=== PATIENT | male | born 2000 | race Caucasian/White ===

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

== ENCOUNTER 2021-12-13 09:36 | Inpatient (IN) | payer BC, OTHER ==
[~2021-12-13] VITALS: Ht 180.3 cm; Wt 57.1 kg
[~2021-12-13 09:36] MED LIST changes: +LAMO25 PO; +PROZAC20 MG PO; +QUET25 PO
[2021-12-13 10:01] LABS: BASOPHILS ABSOLUTE AUTO 0.04 K/mm3 (0.00-0.23); BASOPHILS PERCENT AUTO 0 % (0-2); EOSINOPHILS ABSOLUTE AUTO 0.03 K/mm3 (0.00-0.68); EOSINOPHILS PERCENT AUTO 0 % (0-6); Hemoglobin 13.9 g/dL (13.5-17.5); IMMATURE GRAN ABSOLUTE AUTO 0.08 K/mm3 (0.00-0.10); IMMATURE GRAN PERCENT AUTO 1 % (0-1); LYMPHOCYTES ABSOLUTE AUTO 1.89 K/mm3 (0.84-5.20); LYMPHOCYTES PERCENT AUTO 13 % (21-46); MONOCYTES ABSOLUTE AUTO 0.98 K/mm3 (0.16-1.47); MONOCYTES PERCENT AUTO 7 % (4-13); Mean Corpuscular HGB 29.7 pg (26.0-34.0); Mean Corpuscular HGB Conc 33.9 g/dL (31.5-36.5); Mean Corpuscular Volume 88 fL (80-100); Mean Platelet Volume 9.1 fL (9.1-12.4); NEUTROPHILS PERCENT AUTO 80 % (41-73); Platelet Count 369 K/mm3 (150-400); RDW Coefficient Variation 12.7 % (11.7-14.2); RDW Standard Deviation 40.8 fL (35.1-46.3); Red Blood Cell Count 4.68 M/mm3 (4.30-5.90); White Blood Cell Count 15.12 K/mm3 (4.00-11.30)
[2021-12-13 10:16] LABS: Source, Urine Foley catheter
[2021-12-13 10:17] LABS: PCO2 Arterial 43.8 mmHg (35-45); PO2 Arterial 177 mmHg (80-100); pH Blood Arterial 7.36 (7.35-7.45)
[2021-12-13 10:18] LABS: Alanine Aminotransfer (ALT/SGP 21 U/L (12-78); Albumin, Blood 3.8 g/dL (3.4-5.0); Albumin/Globulin Ratio 0.9 (0.8-1.8); Alk Phos 43 U/L (50-136); Anion Gap 9 mmol/L (6-16); Aspartate Aminotrans (AST/SGOT 23 U/L (12-37); Bilirubin, Total 0.3 mg/dL (0.1-1.0); Blood Urea Nitrogen 15 mg/dL (8-24); Bun/Creatinine Ratio 20.9 (12.0-20.0); CO2, Blood 23 mmol/L (21-32); Calcium, Blood 8.8 mg/dL (8.5-10.1); Chloride, Blood 104 mmol/L (98-108); Creatinine, Blood 0.72 mg/dL (0.60-1.20); Free Thyroxine 1.71 ng/dL (0.70-1.60); Globulin, Blood 4.2 g/dL (2.2-4.0); Glomerular Filtration Rate >60 (60-); Glucose, Blood 136 mg/dL (70-99); Potassium, Blood 3.6 mmol/L (3.5-5.5); Salicylate 1.8 mg/dL (2.8-20.0); Sodium, Blood 136 mmol/L (136-145)
[2021-12-13 10:21] LABS: Ethanol (Alcohol), Blood, Med 16 mg/dL
[2021-12-13 10:23] LABS: Acetaminophen, Random <2.0 ug/mL (10.0-30.0)
[2021-12-13 11:00] LABS: Bilirubin, Urine Neg (Neg); Blood, Urine 1+ (Neg); Glucose Qualitative, Urine Neg (Neg); Ketones, Urine Neg (Neg); Leukocyte Esterase, Urine 1+ (Neg); Nitrite, Urine Neg (Neg); Protein, Urine 2+ (Neg); Specific Gravity, Urine 1.025 (1.003-1.022); Urobilinogen, Urine 1+ (Normal)
[2021-12-13 11:19] LABS: U Benzodiazapine Screen DETECTED; U Cannabinoids Screen DETECTED
[2021-12-13 11:20] LABS: U Amphetamine Screen Not Detected; U Barbituate Screen Not Detected; U Buprenorphine Screen Not Detected; U Cocaine Screen Not Detected; U Methadone Screen Not Detected; U Methamphetamine Screen Not Detected; U Opiates Screen Not Detected; U Oxycodone Screen Not Detected; U Phencyclidine Screen Not Detected; U Propoxyphene Screen Not Detected
[2021-12-13 11:30] LABS: Appearance, Urine Cloudy (Clear); Bacteria Many /hpf; Color, Urine Pale Yellow (P-Yellow); Squamous Epithelial Cells Few /hpf (Few)
[2021-12-13 11:31] LABS: Amorphous Light (0-Heavy); Granular Casts 0-2 /lpf (0); Hyaline Casts 0-2 /lpf (0-2); Mucus Heavy (0-Heavy)
[2021-12-13 12:25] LABS: Influenza A, PCR NEGATIVE (NEGATIVE); Influenza B, PCR NEGATIVE (NEGATIVE); Resp Syncytial Virus, PCR NEGATIVE (NEGATIVE); SARS-Cov-2 (COVID-19) PCR, MMC NEGATIVE (NEGATIVE)
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
--- NOTE | 2021-12-13 16:00 | NUR ---
PATIENT AFEBRILE. NO SIGNS OF PAIN NOTED. HR 80S TO LOW 100S. SBP LOW 100S TO 120S. PATIENT ON PROPOFOL AND PRECEDEX FOR SEDATION. NO OTHER ACUTE CHANGES TO NOTE ON AT THIS TIME. WILL CONTINUE TO MONITOR.
--- NOTE | 2021-12-13 18:39 | NUR ---
SHIFT SUMMARY PATIENT REMAINS INTUBATED AND SEDATED. PATIENT REMAINS RESPONDING TO NOXIOUS STIMULI AND NURSING CARE. PATIENT CONTINUES TO MOVE ALL EXTREMITIES WHEN STIMULATED. PATIENT HAS REMAINED AFEBRILE. PATIENT HAS HAD NO SIGNS OF PAIN. PATIENT REMAINS ON AC 16, TV 450, PEEP 5 AND 30% FIO2. PATIENT REMAINS SR TO ST, HR 80S TO LOW 100S. SBP 90S TO 120S. OG REMAINS TO LIS. NO BM THIS SHIFT. PATIENT REMAINS NPO. TEMP SCANLON DRAINED 350 MLS OF CLOUDY, TEA COLORED URINE THIS SHIFT. NO CHANGES TO SKIN NOTED. PATIENT REPOSITIONED Q2H. PROPOFOL AT 20 MCG/ KG/ MINUTE, PRECEDEX AT 0.4 MCG/ KG/ HOUR, AND LR AT 150 MLS/ HOUR. PATIENT RECIEVED 40 MEQ KCL AND 2 G MAG THIS SHIFT. PATIENT ALSO RECEIVED 1 L NS IN ER AND 1 L LR IN ICU. POISON CONTROL STATED THAT SINCE QTC IMPROVING THAT MAG AND POTASSIUM LABS DO NOT NEED TO BE CONTINUED TO BE DRAWN OVERNIGHT. MOTHER UPDATED AND STATED THAT SHE WOULD LIKE TO BE CALLED PRIOR TO EXTUBATION BECAUSE PATIENT MIGHT BE COMBATIVE. BED LOW, CALL LIGHT IN REACH. PATIENT APPEARS COMFORTABLE AT THIS TIME. REPORT WILL BE GIVEN TO [facility] MATE NURSE SHORTLY.
--- NOTE | 2021-12-13 22:54 | NUR ---
ASSUMED CARE OF PT AT 1900. REPORT RECEIVED FROM AVANI YUEN. PT APPEARS COMFORTABLY SEDATED UNLESS DISTURBED, THEN HAS FORCEFUL COUGH AND REACHES FOR THE ETT. POC TO KEEP INTUBATED AND SEDATED OVERNIGHT AND POSS EXTUBATE TOMORROW.
--- NOTE | 2021-12-14 00:02 | NUR ---
PT BECOMES VERY AGITATED, REACHING FOR TUBE AND COUGHING FORCEFULLY WITH ATTEMPT AT ORAL CARE. STAFF CALLED TO BEDSIDE FOR ASSISTANCE AND PT IS REASSURED AND GIVEN PRN MEDS FOR SEDATION.
[2021-12-14 03:05] LABS: BASOPHILS ABSOLUTE AUTO 0.06 K/mm3 (0.00-0.23); BASOPHILS PERCENT AUTO 0 % (0-2); EOSINOPHILS ABSOLUTE AUTO 0.06 K/mm3 (0.00-0.68); EOSINOPHILS PERCENT AUTO 0 % (0-6); Hematocrit 36.1 % (37.0-53.0); Hemoglobin 12.1 g/dL (13.5-17.5); IMMATURE GRAN PERCENT AUTO 1 % (0-1); LYMPHOCYTES ABSOLUTE AUTO 1.62 K/mm3 (0.84-5.20); LYMPHOCYTES PERCENT AUTO 8 % (21-46); MONOCYTES ABSOLUTE AUTO 0.96 K/mm3 (0.16-1.47); MONOCYTES PERCENT AUTO 5 % (4-13); Mean Corpuscular HGB 29.8 pg (26.0-34.0); Mean Corpuscular HGB Conc 33.5 g/dL (31.5-36.5); Mean Corpuscular Volume 89 fL (80-100); NEUTROPHILS ABSOLUTE AUTO 17.37 K/mm3 (1.96-9.15); NEUTROPHILS PERCENT AUTO 86 % (41-73); Platelet Count 293 K/mm3 (150-400); RDW Coefficient Variation 13.2 % (11.7-14.2); RDW Standard Deviation 42.8 fL (35.1-46.3); Red Blood Cell Count 4.06 M/mm3 (4.30-5.90); White Blood Cell Count 20.17 K/mm3 (4.00-11.30)
[2021-12-14 03:23] LABS: Alanine Aminotransfer (ALT/SGP 15 U/L (12-78); Albumin, Blood 2.9 g/dL (3.4-5.0); Albumin/Globulin Ratio 0.9 (0.8-1.8); Alk Phos 38 U/L (50-136); Anion Gap 5 mmol/L (6-16); Aspartate Aminotrans (AST/SGOT 27 U/L (12-37); Bilirubin, Total 0.6 mg/dL (0.1-1.0); Blood Urea Nitrogen 10 mg/dL (8-24); Bun/Creatinine Ratio 14.6 (12.0-20.0); CO2, Blood 26 mmol/L (21-32); Calcium, Blood 8.8 mg/dL (8.5-10.1); Chloride, Blood 109 mmol/L (98-108); Creatinine, Blood 0.69 mg/dL (0.60-1.20); Globulin, Blood 3.4 g/dL (2.2-4.0); Glomerular Filtration Rate >60 (60-); Glucose, Blood 88 mg/dL (70-99); Magnesium, Blood 2.1 mg/dL (1.6-2.4); Potassium, Blood 4.1 mmol/L (3.5-5.5); Sodium, Blood 140 mmol/L (136-145); Total Protein, Blood 6.3 g/dL (6.4-8.2)
--- NOTE | 2021-12-14 06:12 | NUR ---
NO SIGNIFICANT CHANGES IN PT STATUS OVERNIGHT. HE IS EASILY AGITATED WITH ANY CARE, GENTLE ORAL CARE AND REPOSITIONING DONE. SEDATION WITH PROPOFOL AND PRECEDEX. VSS. HE IS AFEBRILE. WILL CONTINUE TO MONITOR AND REPORT TO ONCOMING SHIFT.
--- NOTE | 2021-12-14 08:00 | NUR ---
INITIAL ASSESSMENT PATIENT INTUBATED AND SEDATED. PATIENT RESPONDS TO NURSING CARE/ STIMULATION WITH AGGITATION, SITTING FORWARD AND ATTEMPTING TO GRAB ETT. PATIENT STRONG AND ABLE TO MOVE ALL EXTREMITIES. PATIENT AFEBRILE. NO SIGNS OF PAIN NOTED. LUNGS CLEAR. PATIENT ON AC 16, TV 450, PEEP 5 AND 30% FIO2. MODERATE AMOUNT OF THICK, YELLOW SPUTUM BEING SUCTIONED FROM ETT. PATIENT IN SR, HR IN THE 60S. SBP IN THE 90S. OG TO LIS. PATIENT NPO. DATE OF LAST BM UNKNOWN. SCANLON DRAINING CLOUDY, TEA COLORED URINE. BRUISE TO R KNEE. PETECHIAE TO BILAT NECK (MOTHER STATES HICKIES), AND STERI STRIPS TO SMALL LACERATION TO BRIDGE OF NOSE. PATIENT MOVING OWN HIPS FREQUENTLY IN BED. PROPOFOL INFUSING AT 30 MCG/ KG/ MINUTE, PRECEDEX AT 0.2 MCG/ KG/ HOUR, LR AT 150 MLS/ HOUR. DR. MANN UPDATED ON PATIENT. INFORMED THAT WBCS INCREASING AND THAT NO URINE CULTURE DONE ON URINE OBTAINED YESTERDAY. STATED HE WOULD PLACE ORDERS. WILL CONTINUE TO MONITOR PATIENT FREQUENTLY THROUGHOUT SHIFT.
--- NOTE | 2021-12-14 10:50 | NUR ---
DR. LUNA CALLED AND INFORMED THAT PATIENT EXTUBATED AT 1014 AND THAT HE IS STARTING TO ESCALATE. DR. LUNA STATED THAT HE WOULD COME SEE HIM TODAY BUT UNSURE ON TIME. PATIENT INFORMED AFTER EXTUBATION THAT HE WAS FOUND WITH EMPTY PILL BOTTLES AROUND HIM. PATIENT STATED THAT HE TOOK 2 FULL BOTTLES OF SEROQUEL YESTERDAY MORNING. PATIENT ASKED IF HE WAS TRYING TO KILL HIMSELF AND PATIENT STATED "YES". PATIENT ASKED WHY AND HE STATED "BECAUSE [place], FULL OF [place]OSS[place]. I JUST WANT TO GET OUT OF HERE AND MOVE TO [place]". PATIENT INFORMED THAT HE NEEDS TO STAY IN HOSPITAL UNTIL DR. LUNA CAN COME AND SPEAK WITH HIM BECAUSE THEY WANT TO MAKE SURE HE IS SAFE TO GO HOME. PATIENT STATES "CAN YOU JUST FORGET WHAT I SAID".
--- NOTE | 2021-12-14 11:12 | NUR ---
DR. MANN AND DR. LAZAR INFORMED THAT PATIENT IS STARTING TO ESCALATE AND WANTS TO LEAVE AMA. MOTHER AT BEDSIDE. 2 MD HOLD PAPERWORK BEING FILLED OUT.
--- NOTE | 2021-12-14 12:00 | NUR ---
PATIENT AFEBRILE. PATIENT ALERT AND ORIENTED. PATIENT MOOD VERY LABILE. PATIENT JOKING WITH NURSE ONE MOMENT AND THEN THREATENING TO LEAVE THE NEXT. PATIENT HAS SCATTERED, RAPID THOUGHTS. PATIENT CONTINUES TO DENY SI. SPEECH QUIET, FAST, DIFFICULT TO UNDERSTAND. HR IN THE 90S. SBP 120S TO 130S. OG REMOVED WHEN PATIENT EXTUBATED. MOTHER REMAINS AT BEDSIDE AND DOES HELP TO DE-ESCALATE PATIENT SOME. NO COMPLAINTS OF PAIN AT THIS TIME. WILL CONTINUE TO MONITOR.
[2021-12-14 14:06] LABS: Anion Gap 6 mmol/L (6-16); Blood Urea Nitrogen 9 mg/dL (8-24); Bun/Creatinine Ratio 15.7 (12.0-20.0); CO2, Blood 25 mmol/L (21-32); Calcium, Blood 8.6 mg/dL (8.5-10.1); Chloride, Blood 108 mmol/L (98-108); Creatinine, Blood 0.57 mg/dL (0.60-1.20); Glomerular Filtration Rate >60 (60-); Glucose, Blood 84 mg/dL (70-99); Potassium, Blood 3.9 mmol/L (3.5-5.5); Sodium, Blood 139 mmol/L (136-145)
--- NOTE | 2021-12-14 16:00 | NUR ---
PATIENT AFEBRILE. PATIENT REMAINS VERY LABILE. PATIENT CALM AND COOPERATIVE AT TIMES AND AT OTHERS HE IS AGGRESSIVE, ANGRY, AGITATED, CURSING AT STAFF, THREATENING TO LEAVE. PATIENT FORGETFUL AT TIMES. PATIENT ON PRECEDEX AT 0.7 MCG/ KG/ HOUR. HR 80S TO 90S. SBP 120S TO 130S. MOTHER REMAINS AT BEDSIDE.
--- NOTE | 2021-12-14 19:04 | NUR ---
SHIFT SUMMARY PATIENT ALERT AND ORIENTED MOST TIMES BUT DOES HAVE PERIODS OF FORGETFULNESS. PATIENT ON PRECEDEX AT 0.7 MCG/ KG/ HOUR. PATIENT VERY LABILE; PATIENT CALM AND COOPERATIVE AT TIMES AND AT OTHERS HE IS ANGRY, THREATENING TO LEAVE AND CURSING AT STAFF. PATIENT HAS RAPID, SCATTERED THOUGHTS. PATIENT IS QUIET AND DIFFICULT TO UNDERSTAND AT TIMES. PATIENT REPOSITIONS SELF IN BED. PATIENT HAS REMAINED AFEBRILE. NO COMPLAINTS OF PAIN THIS SHIFT. LUNGS HAVE REMAINED CLEAR. PATIENT EXTUBATED THIS AM. PATIENT HAS BEEN SATTING 90% AND GREATER ON RA SINCE. PATIENT COUGHING UP THICK BLOODY, YELLOW SPUTUM. PATIENT SR TO SR, HR 50S TO LOW 100S. SBP 90S TO 130S. OG DC'D WHEN EXTUBATED. PATIENT PASSED SWALLOW EVAL AND PLACED ON REGULAR DIET. NO BM THIS SHIFT. SCANLON DC'D. 1500 MLS OF CLOUDY, TEA/ GREEN COLORED URINE OUT THIS SHIFT. NO CHANGES TO SKIN NOTED. DR. LUNA CAME TO SEE PATIENT AND IS RECOMMENDING INPATIENT PSYCH. MOTHER, INOCENCIA, IN ROOM ALL DAY WITH PATIENT. BED LOW, CALL LIGHT IN REACH. REPORT GIVEN TO CHEMICAL WASTE MANAGEMENT TECHNICIAN RN.
--- NOTE | 2021-12-14 19:54 | NUR ---
ASSUMED CARE @1900 PATIENT IS ALERT AND ORIENTED X4. SPEAKS VERY QUIETLY AT TIMES AND IS HARD TO UNDERSTAND. MAKING SOME NONSENSICLE COMMENTS AND RAMBLING. DENIES SUICIDAL IDEATION, STATES "I JUST WANT TO GET OUT OF HERE". 1:1 SITTER. PATIENT APPEARS ANXIOUS AT TIMES, PRECEDEX INF. 02 SATS 99% ON RA. LUNGS SOUND CLEAR THROUGHOUT. PATIENT COUGHING UP THICK YELLOW SPUTUM. HR SR @80s. BP STABLE. PATIENT USES URINAL. REPOSITIONS SELF IN BED. SEE SHIFT ASSESSMENT FOR MORE DETAIL.
--- NOTE | 2021-12-14 20:16 | NUR ---
ATTEMPTED TO GIVE PATIENT HIS NIGHT TIME MEDICATION. PATIENT ASKED IF HE COULD HAVE HIS PHONE, EXPLAINED TO PATIENT WHY HE COULD NOT. PATIENT BECAME VERY AGITATED, CALLING ME NAMES AND REFUSED TO TAKE HIS MEDICATION. EXHIBITIONS AND COLLECTIONS MANAGER TO ROOM AND PATIENT AGREED TO TAKE HIS MEDS.
--- NOTE | 2021-12-14 22:21 | NUR ---
PATIENT BECAME INCREASINGLY AGITATED AROUND 2029. PATIENT STARTED THREATENING TO TEAR THE ROOM APART. GOT OUT OF BED, YELLED AT STAFF AND PULLED HIS IV OUT. SECURITY CALLED AND TO ROOM. THIS RN EXPLAINED TO THE PATIENT SEVERAL TIMES THAT HE WAS ON A 2 MD HOLD AND WOULD BE BROUGHT BACK TO THE HOSPITAL IF HE WERE TO LEAVE. CONNIE CLEANER TO ROOM TO EXPLAIN TO PATIENT WHY HE COULD NOT LEAVE WELL. ALLOWED 1 SUPERVISED PHONE CALL TO HIS MOM, PATIENT BECAME COOPERATIVE AND CALM. ALLOWED A NEW IV TO BE INSERTED. AGREED TO LAY IN BED AND TRY TO SLEEP. PATIENT STILL HAD SITTER, IS ON CAMERA AND IS CURRENTLY QUIET LAYING IN BED. CALLED PATIENT MOM AND UPDATED HER. PRECEDEX REMAINS OFF.
--- NOTE | 2021-12-15 06:06 | NUR ---
PATIENT ALERT AND ORIENTED, NO OTHER INCIDENTS THROUGH THE NIGHT, SEE PREVIOUS NOTES. PATIENT WAS CALM AND SLEPT THROUGH THE NIGHT. VITAL SIGNS STABLE. PATIENT REPOSITIONED SELF AND USED URINAL.
--- NOTE | 2021-12-15 08:19 | NUR ---
AT 0700 MOM WAS IN TO VISIT PT. PT'S MOOD WAS LABILE. WENT IN TO INTRODUCE RN AT SHIFT CHANGE AND PT RESPONDED WITH "YOU ARE NOT COMING BACK IN MY ROOM". MOM HELPING DE-ESCALATE PT AND PT EVENTUALLY CALMED DOWN THEN AN HOUR LATER WAS PLEASANT AND COOPERATIVE WITH MEDS AND CARE.
[2021-12-15 08:45] LABS: BASOPHILS ABSOLUTE AUTO 0.04 K/mm3 (0.00-0.23); BASOPHILS PERCENT AUTO 0 % (0-2); EOSINOPHILS ABSOLUTE AUTO 0.05 K/mm3 (0.00-0.68); EOSINOPHILS PERCENT AUTO 0 % (0-6); Hematocrit 39.7 % (37.0-53.0); Hemoglobin 13.6 g/dL (13.5-17.5); IMMATURE GRAN ABSOLUTE AUTO 0.06 K/mm3 (0.00-0.10); IMMATURE GRAN PERCENT AUTO 0 % (0-1); LYMPHOCYTES ABSOLUTE AUTO 0.99 K/mm3 (0.84-5.20); LYMPHOCYTES PERCENT AUTO 6 % (21-46); MONOCYTES ABSOLUTE AUTO 0.84 K/mm3 (0.16-1.47); MONOCYTES PERCENT AUTO 5 % (4-13); Mean Corpuscular HGB 30.4 pg (26.0-34.0); Mean Corpuscular HGB Conc 34.3 g/dL (31.5-36.5); Mean Corpuscular Volume 89 fL (80-100); Mean Platelet Volume 8.9 fL (9.1-12.4); NEUTROPHILS ABSOLUTE AUTO 13.78 K/mm3 (1.96-9.15); NEUTROPHILS PERCENT AUTO 87 % (41-73); Platelet Count 320 K/mm3 (150-400); RDW Coefficient Variation 12.7 % (11.7-14.2); RDW Standard Deviation 41.5 fL (35.1-46.3); Red Blood Cell Count 4.48 M/mm3 (4.30-5.90); White Blood Cell Count 15.76 K/mm3 (4.00-11.30)
[2021-12-15 09:03] LABS: Anion Gap 10 mmol/L (6-16); Blood Urea Nitrogen 8 mg/dL (8-24); Bun/Creatinine Ratio 12.4 (12.0-20.0); CO2, Blood 26 mmol/L (21-32); Calcium, Blood 8.6 mg/dL (8.5-10.1); Chloride, Blood 101 mmol/L (98-108); Creatinine, Blood 0.64 mg/dL (0.60-1.20); Glomerular Filtration Rate >60 (60-); Glucose, Blood 106 mg/dL (70-99); Magnesium, Blood 1.6 mg/dL (1.6-2.4); Potassium, Blood 3.9 mmol/L (3.5-5.5); Sodium, Blood 137 mmol/L (136-145)
--- NOTE | 2021-12-15 16:48 | NUR ---
SUMMARY PT A/O X4. HAS BEEN PLEASANT AND COOPERATIVE AFTER THIS AM. DENIES SUICIDAL IDEATION. MOM HAS BEEN IN TO VISIT TODAY AND HAS BEEN HELPING. DOWNGRADED TO MEDICAL STATUS TODAY. HAS NOT HAD MUCH APPETITE. HAS SORE THROAT FROM BEING INTUBATED, GOT ORDER FOR CEPACOL LOZENGES. NO OTHER CHANGES TODAY. 1:1 SITTER STILL ACTIVE.
--- NOTE | 2021-12-15 18:56 | NUR ---
DR. RICHARDS SAW PT THIS EVENING AND DETERMINED HE CAN BE DISCHARGED. DR. MANN NOTIFIED AND WROTE D/C ORDERS. DR. RICHARDS GAVE PT'S MOM RX FOR SEROQUEL AND PROZAC AND SHE ALREADY WENT AND GOT THEM FILLED. TOO LATE IN EVENING TO MAKE F/U APPT FOR PT WITH [facility] BUT INSTRUCTIONS WERE GIVEN TO PT AND MOM ON HOW TO GET F/U APPT. NO SIGN OF DISTRESS. PT WALKS OUT ACCOMPANIED BY MOM. PLEASANT AND COOPERATIVE.
== END 2021-12-15 18:57 | disposition home or self-care (01) | DRG 917 ==
LOC: ER 09:36 → ICUW 11:34
PROVIDERS: Emergency Medicine; Family Medicine; Nurse Practitioner Acute Care; ADMIT Internal Medicine
PROC: 0BH17EZ Insertion of Endotracheal Airway into Trachea, Via Natural or Artificial Opening (ICD-10-PCS; principal; 2021-12-13)
PROC: 5A1945Z Respiratory Ventilation, 24-96 Consecutive Hours (ICD-10-PCS; 2021-12-13)
DX: T43.592A Poisoning by other antipsychotics and neuroleptics, intentional self-harm, initial encounter (principal); G92.8 Other toxic encephalopathy; R65.10 Systemic inflammatory response syndrome (SIRS) of non-infectious origin without acute organ dysfunction; F31.81 Bipolar II disorder; Z20.822 Contact with and (suspected) exposure to COVID-19; F17.210 Nicotine dependence, cigarettes, uncomplicated; F12.10 Cannabis abuse, uncomplicated; R82.71 Bacteriuria; Z79.899 Other long term (current) drug therapy; Z78.1 Physical restraint status; Z91.51 Personal history of suicidal behavior
CPT/HCPCS: 0241U; 36415; 36600; 51702; 70450; 71045; 72125; 80048; 80053; 80175; 81001; 82803; 83735; 84439; 84443; 85025; 87086; 93005; 93010; 94002; 94760; 96374; 99285-25; A9270; G0480; J0330; J1650; J2060; J2704; J3010; J3475; J3480; J7030; J7050; J7120